=== PATIENT | male | born 1965 | race Caucasian/White ===

== ENCOUNTER 2019-02-12 10:37 | Emergency (ER) | payer OTHER ==
[~2019-02-12] VITALS: Ht 182.9 cm; Wt 108.9 kg
[2019-02-12 10:37] VITALS: BP_SYST 128
[2019-02-12] MEDS: PROCHLORPERAZINE EDISYLATE 10 MG/2 ML VIAL IM ONE (11:12)
[2019-02-12] MEDS: KETOROLAC TROMETHAMINE 60 MG/2 ML VIAL IM ONE (11:12)
[2019-02-12 12:50] VITALS: BP_SYST 130
== END 2019-02-12 12:50 | disposition home or self-care (01) ==
LOC: SED 10:37
DX: G43.909 Migraine, unspecified, not intractable, without status migrainosus (principal); Z88.8 Allergy status to other drugs, medicaments and biological substances
CPT/HCPCS: 96372; 99283; J0780; J1885